=== PATIENT | female | born 1980 | race Caucasian/White ===

== ENCOUNTER 2016-07-22 07:47 | Emergency (ER) | payer OTHER ==
[~2016-07-22] VITALS: Ht 165.1 cm; Wt 155.4 kg
[~2016-07-22 07:47] MED LIST: ALBUTEROL SULF8.5 GM IH; AUGMENTIN875 MG PO; CIPRO HC OTIC S10 ML RIGHT EAR; DULCOLAX5 MG PO; FLEXERIL10 MG PO; FLEXERIL5 MG PO; GABAPENTIN300 MG PO; LEVAQUIN750 MG PO; LEVOTHROID,S0.175 M1 PO; LEVOTHROID,SY0.15 MG PO; LEVOTHROID150 MCG PO; LEVOTHYROXINE150 MCG PO; LYRICA75 MG PO; MEDROL DOSEPAK4 MG PO; MOTRIN600 MG PO; MOTRIN800 MG PO; MUCINEX DM ER1 EACH PO; NORCO 5/3251 TABLET PO; NUVARING VAGIN1 EACH VG; PREDNISONE20 MG PO; RANITIDINE HCL150 MG PO; ROBITUSSIN AC,T10 ML PO; TESSALON PERLE100 MG PO; VENTOLIN HFA18 GM IH; ZANTAC150 MG PO; ZITHROMAX500 MG PO; [UNRECOGNIZED DRUG - OTHER]; synthroid; zantac; zithromax
[2016-07-22] MEDS ORDERED: ZOFRAN ODT4 MG PO (08:03)
[2016-07-22 08:25] VITALS: BP 123/79
== END 2016-07-22 08:26 | disposition home or self-care (01) ==
LOC: EME 07:47
DX: S06.0X9A Concussion with loss of consciousness of unspecified duration, initial encounter (principal); W22.8XXA Striking against or struck by other objects, initial encounter; Z86.79 Personal history of other diseases of the circulatory system
CPT/HCPCS: 99281; 99284

== ENCOUNTER 2016-09-03 08:48 | Emergency (ER) | payer OTHER ==
[~2016-09-03] VITALS: Ht 167.6 cm; Wt 160.8 kg
[~2016-09-03 08:48] MED LIST changes: +ZOFRAN ODT4 MG PO
[2016-09-03 08:56] VITALS: BP 135/88
[2016-09-03] MEDS ORDERED: TESSALON200 MG PO (09:22)
== END 2016-09-03 09:56 | disposition home or self-care (01) ==
LOC: EME 08:48
DX: J06.9 Acute upper respiratory infection, unspecified (principal); R11.0 Nausea; Z87.891 Personal history of nicotine dependence
CPT/HCPCS: 99281; 99284

== ENCOUNTER 2016-09-08 10:24 | Emergency (ER) | payer OTHER ==
[~2016-09-08] VITALS: Ht 167.6 cm; Wt 160.3 kg
[~2016-09-08 10:24] MED LIST changes: +TESSALON200 MG PO
[2016-09-08] MEDS ORDERED: ZANTAC75 M1 PO (11:43)
[2016-09-08] MEDS ORDERED: LEVO-T112 MCG PO (11:43)
[2016-09-08] MEDS ORDERED: PEN-VEE K,VEET500 MG PO (11:48)
[2016-09-08 12:16] VITALS: BP 120/66
== END 2016-09-08 12:17 | disposition home or self-care (01) ==
LOC: RME 10:24 → EME 10:24 → RME 12:17
DX: J02.9 Acute pharyngitis, unspecified (principal); B34.9 Viral infection, unspecified; H92.09 Otalgia, unspecified ear; R11.0 Nausea; R51 Headache; E03.9 Hypothyroidism, unspecified
CPT/HCPCS: 87651 90; 99281; 99284

== ENCOUNTER 2016-10-26 21:44 | Emergency (ER) | payer OTHER ==
[~2016-10-26] VITALS: Ht 165.1 cm; Wt 163.4 kg
[~2016-10-26 21:44] MED LIST changes: +LEVO-T112 MCG PO; +PEN-VEE K,VEET500 MG PO; +ZANTAC75 M1 PO
[2016-10-26 22:06] LABS: HEMATOCRIT 41.8 % (36.0-46.0); MCH 28.2 PG (29.0-34.0); MCHC 32.3 G/DL (30.0-36.0); MCV 87.3 FL (83-99); MEAN PLAT.VOLUME 9.8 uM^3 (9.5-12.4); PLATELET COUNT 308 K/uL (156-360); RBC DIS.WIDTH-CV 13.5 % (11.8-14.6); RBC DIS.WIDTH-SD 43.5 % (39-53); RED BLOOD COUNT 4.79 M/uL (3.80-5.20); WHITE BLOOD COUNT 7.5 K/uL (4.1-10.2)
[2016-10-26 22:16] LABS: CHLORIDE 106 mEq/L (99-109); SODIUM 140 mEq/L (136-147)
[2016-10-26 22:17] LABS: GLUCOSE 99 mg/dL (70-99)
[2016-10-26 22:19] LABS: ANION GAP 8 MEQ/L (2-14)
[2016-10-26 22:21] LABS: GFR ESTIMATE (CALCULATED) > 59 mL/min/
[2016-10-26 22:22] LABS: UREA NITROGEN (BUN) 16 mg/dL (9-23)
[2016-10-26 23:03] LABS: TROP-I INTERPRETATION NEGATIVE; TROPONIN-I < 0.01 ng/mL (0.0-0.30)
[2016-10-27 00:34] VITALS: BP 124/82
== END 2016-10-27 00:35 | disposition home or self-care (01) ==
LOC: EME 21:44
PROVIDERS: Emergency Medicine
DX: J06.9 Acute upper respiratory infection, unspecified (principal); M25.519 Pain in unspecified shoulder; E03.9 Hypothyroidism, unspecified
CPT/HCPCS: 71020; 80048; 83880; 84484; 85027; 93005; 99281; 99284